=== PATIENT | female | born 1995 | race Caucasian/White ===

== ENCOUNTER 2019-04-26 18:50 | Inpatient (IN) | payer MEDICAID ==
[~2019-04-26] VITALS: Ht 160 cm; Wt 68.2 kg
[~2019-04-26 18:50] MED LIST: LORA10TA61 PO
[2019-04-26 19:23] LABS: BASOPHILS # (AUTO) 0.2 X10'3 (0-0.2); BASOPHILS % (AUTO) 0.7 % (0-1); EOSINOPHILS % (AUTO) 0 % (0-6); HEMATOCRIT 41.9 % (35.0-45.0); LYMPHOCYTES # (AUTO) 0.5 X10'3 (1.1-4.8); LYMPHOCYTES % (AUTO) 2.5 % (21-51); MEAN CORPUSCULAR HEMOGLOBIN 29.3 PG (27.0-31.0); MEAN CORPUSCULAR HGB CONC 33.5 g/dL (33.0-36.5); MEAN CORPUSCULAR VOLUME 87.6 FL (78-98); MEAN PLATELET VOLUME 7.6 FL (7.4-10.4); MONOCYTES # (AUTO) 0.9 X10'3 (0-0.9); MONOCYTES % (AUTO) 4.1 % (2-12); NEUTROPHILS # (AUTO) 19.8 X10'3 (1.8-7.7); NEUTROPHILS % (AUTO) 92.7 % (42-75); PLATELET COUNT 330 X10'3 (140-440); RED BLOOD COUNT 4.78 X10'6 (4.20-5.60); RED CELL DISTRIBUTION WIDTH 12.3 % (11.5-14.5); WHITE BLOOD COUNT 21.4 X10'3 (4.5-11.0)
[2019-04-26 19:25] LABS: URINE HCG NEGATIVE (NEG)
[2019-04-26 19:29] LABS: CLARITY,URINE CLOUDY (Clear); COLOR,URINE YELLOW (Yellow); GLUCOSE, URINE NEGATIVE (Neg); KETONES,URINE >=80 mg/dl (Neg); LEUKOCYTE ESTERASE ,URINE NEGATIVE (Neg); NITRITES, URINE NEGATIVE (Neg); OCCULT BLOOD,URINE NEGATIVE (Neg); PH,URINE 7.5 (4.8-8.0); PROTEIN,URINE 30 mg/dl (Neg)
[2019-04-26 19:40] LABS: ALANINE AMINOTRANSFERASE 19 U/L (12-78); ALBUMIN 4.7 G/DL (3.4-5.0); ALBUMIN/GLOBULIN RATIO 1.3 (1.1-1.5); ALKALINE PHOSPHATASE 127 IU/L (46-116); ANION GAP 12 (8-16); ASPARTATE AMINO TRANSFERASE 17 U/L (10-37); BILIRUBIN,TOTAL 0.6 MG/DL (0.1-1.0); BLOOD UREA NITROGEN 7 MG/DL (7-18); BUN/CREATININE RATIO 10.1 (6.6-38.0); CALCIUM 9.4 MG/DL (8.5-10.1); CHLORIDE 103 MMOL/L (99-107); CREATININE 0.69 MG/DL (0.40-0.90); GLUCOSE 103 MG/DL (70-104); POTASSIUM 3.9 MMOL/L (3.5-5.1); SODIUM 139 MMOL/L (135-145); TOTAL CARBON DIOXIDE 23.9 MMOL/L (24-32); TOTAL PROTEIN 8.3 G/DL (6.4-8.2); eGFR > 90 ML/MIN
[2019-04-26 19:53] LABS: UA COLLECTION TYPE CLN CATCH MIDSTREAM
[2019-04-26 20:05] LABS: WBC,URINE 0-4 /HPF (0-4)
[2019-04-26 20:06] LABS: AMORPHOUS PHOSPHATES 3+; BACTERIA,URINE FEW /HPF (Neg); MUCUS STRANDS MODERATE /LPF (Neg); RBC,URINE NONE SEEN /HPF (0-2); SQUAMOUS EPITHELIAL CELL,UR MODERATE /LPF (FEW)
[2019-04-26] MEDS ORDERED: ondansetron/PF 4mg/2ml inj IV ONE (20:50)
[2019-04-26] MEDS ORDERED: morphine 4 MG/ML inj SYRINge IV ONE (20:50)
[2019-04-26] MEDS ORDERED: normal saline 1000ML IV soln IVB ONE ×2 (20:50→21:50)
[2019-04-26] MEDS ORDERED: iohexol 300mg/ml 100ml inj. ONE (20:53)
[2019-04-26 21:22] LABS: LIPASE 63 U/L (73-393)
[2019-04-26 21:52] LABS: PARTIAL THROMBOPLASTIN TIME 30 SECONDS (22-32)
[2019-04-26] MEDS ORDERED: ertapenem sod inj 1 GM in normal saline 100ml IV soln 100 ML IV SCH (22:00)
[2019-04-26] MEDS ORDERED: ertapenem sod inj 1 GM in normal saline 100ml IV soln 100 ML IV ONE (22:01)
[2019-04-26] MEDS ORDERED: ringers solution, lacted 1,000 ML IV ONE (22:03)
[2019-04-26] MEDS ORDERED: NO HOME MEDS (22:09)
[2019-04-27] VITALS (15 sets, daily range): BP systolic 95–128; BP diastolic 57–79
[2019-04-27] MEDS ORDERED: HYDROmorphone 1 mg/ml syringe IV PRN (00:15)
[2019-04-27] MEDS ORDERED: HYDROmorphone inj. 0.5 MG/0.5 ML DISP.SYRIN IV PRN (00:15)
[2019-04-27] MEDS ORDERED: ondansetron/PF 4mg/2ml inj IV PRN ×2 (00:15→06:25)
[2019-04-27] MEDS: normal saline 1000ml 1,000 ML IV SCH ×2 (01:01→10:14)
--- NOTE | 2019-04-27 02:00 | NUR ---
Patient in room [facility]. I have received report from Tai ANTONIO in ER and had the opportunity to ask questions and assume patient care. Patient arrived in a wheelchair and she resting. Her heart rate is elevated at 113 with blood pressure at 128/79. She i getting prepared for surgery sometime in the morning.
[2019-04-27] MEDS ORDERED: famotidine/PF 10 mg/ml inj IV ONE (06:00)
--- NOTE | 2019-04-27 06:17 | NUR ---
Patient in room [facility]. I have received report from Marlin ANTONIO and had the opportunity to ask questions and assume patient care.
[2019-04-27] MEDS ORDERED: ringers solution, lacted 1,000 ML IV SCH (06:24)
[2019-04-27] MEDS ORDERED: hydrALAZINE 20mg/ml inj. IV PRN (06:25)
[2019-04-27] MEDS ORDERED: fentaNYL/PF 50MCG/1 ML 2ML syringe IV PRN ×2 (06:25)
[2019-04-27] MEDS ORDERED: labetalol 20mg/4ml (5mg/ml) syringe IV PRN (06:25)
[2019-04-27] MEDS ORDERED: morphine 4 MG/ML inj SYRINge IV PRN ×2 (06:25)
--- NOTE | 2019-04-27 06:37 | NUR ---
Problems reprioritized. Patient report given, questions answered & plan of care reviewed with Fide ANTONIO.
[2019-04-27] MEDS ORDERED: LIDOcaine 1% 30ml preserv. free vial ONE (07:03)
[2019-04-27] MEDS ORDERED: BUPIVAcaine/PF 2.5 mg/ml (0.25%) 30ml vial ONE (07:03)
--- NOTE | 2019-04-27 07:13 | NUR ---
Called report to recovery.
--- NOTE | 2019-04-27 07:14 | NUR ---
Patient off the unit to OR
[2019-04-27] MEDS ORDERED: fentaNYL/PF 50MCG/1 ML 2ML syringe ONE (07:18)
[2019-04-27] MEDS ORDERED: MIDAZolam 5mg/5ml vial ONE (07:19)
[2019-04-27] MEDS ORDERED: ceFOXitin 2 GM ADDVANTGE BAG 50 ML IV ONE (07:23)
[2019-04-27] MEDS ORDERED: ondansetron/PF 4mg/2ml inj ONE (07:27)
[2019-04-27] MEDS ORDERED: propofol inj 20 ML IV ONE (07:27)
[2019-04-27] MEDS ORDERED: rocuronium 10mg/ml inj IV ONE (07:27)
[2019-04-27] MEDS ORDERED: dexamethasone sod phosphate 4mg/ml inj. ONE (07:27)
[2019-04-27] MEDS ORDERED: LIDOcaine 1%/PF 5ML 10 MG/ML VIAL ONE (07:27)
[2019-04-27] MEDS ORDERED: neostigmine methylsulfate 1 MG/ML 10ml vial ONE (07:29)
[2019-04-27] MEDS ORDERED: glycopyrrolate 0.2mg/ml inj ONE (07:29)
[2019-04-27] MEDS ORDERED: metoprolol tartrate 1mg/ml inj IV ONE (07:40)
[2019-04-27] MEDS ORDERED: ketorolac trometh. 30mg/ml inj. ONE (07:59)
--- NOTE | 2019-04-27 08:12 | NUR ---
Received from OR via , accompanied by Anesthesiologist DR [email or web address] and report given by Anesthesiolgist. PT IS SLEEPING WITH SNORING RESP, NOT RESPONDIND TO VERBAL STIMULI, ABD HAS 3 BA'S CD, PIV RIGHT AC 20G, NO SCDS PT WILL BE DISCHARGED HOME POST RECOVERY.
[2019-04-27] MEDS ORDERED: HYDROcodone/acetaminophen 5mg/325mg tablet PO PRN (08:15)
[2019-04-27] MEDS ORDERED: HYDROcodone/acetaminophen 10/325mg tab PO PRN (08:15)
[2019-04-27] MEDS ORDERED: HYDR-4383 PO (08:18)
--- NOTE | 2019-04-27 08:25 | NUR ---
PT IS AWAKE, MOVING EXT X 4, NO C/O PAIN.
--- NOTE | 2019-04-27 08:38 | NUR ---
Report called to receiving nurse. Transferred via [facility] . Special Issues communicated to receiving nurse MARY CARMEN ANTONIO. PT IS WAKING TO VOICE AND RESPONDING TO VERBAL COMMANDS, SKIN WARM AND PINK, PIV PATENT, BA'S ON ABD CD, VSS, NO C/O PAIN, PEDRO FLUIDS. PT MEETS DISCHARGE CRITERIA.
--- NOTE | 2019-04-27 13:17 | NUR ---
Discharge paper work completed with patient and mother. Patient is still on Post-Op VS, one more hour needed.
--- NOTE | 2019-04-27 14:35 | NUR ---
Patient Post op VS completed. Patient WC by tech to lobby with mother. VS stable. A&O x4.
[2019-04-27] MEDS ORDERED: ertapenem sod inj 1 GM in normal saline 100ml IV soln 100 ML IV SCH (22:00)
== END 2019-04-27 14:34 | disposition home or self-care (01) | DRG 234 ==
LOC: ER 18:51 → SUR 3N 04-27 02:02
PROVIDERS: ADMIT Internal Medicine; ATTEND Surgery
PROC: BW211ZZ Computerized Tomography (CT Scan) of Abdomen and Pelvis using Low Osmolar Contrast (ICD-10-PCS; 2019-04-26)
PROC: 0DTJ4ZZ Resection of Appendix, Percutaneous Endoscopic Approach (ICD-10-PCS; principal; 2019-04-27 07:15)
DX: K35.891 Other acute appendicitis without perforation, with gangrene (principal); F17.200 Nicotine dependence, unspecified, uncomplicated
CPT/HCPCS: 36415; 71045; 74177; 80053; 81001; 81025; 82948; 83690; 85025; 85610; 85730; 87081; 93005; 96365; 96375; 96376; 99285; A4215; A4618; A7000; G0378; J0694; J1100; J1170; J1335; J1885; J2001; J2250; J2270; J2405; J2704; J2710; J3010; J3490; J7030; J7120; Q9967

== ENCOUNTER 2019-08-16 17:44 | Emergency (ER) | payer MEDICAID ==
[~2019-08-16] VITALS: Ht 160 cm; Wt 60.0 kg
[~2019-08-16 17:44] MED LIST changes: +HYDR-4383 PO; +LIDOcaine 1% W/epiNEPHrine 1:100,000 20ml vial ONE; -LORA10TA61 PO; +NO HOME MEDS
[2019-08-16] MEDS ORDERED: TETanus/Pertussis (Acell)/Diphther VAC/PF (Tdap-Adult) 0.5ml syringe IMVAC ONE (19:05)
[2019-08-16] MEDS ORDERED: CEPH250T PO (19:39)
[2019-08-16] MEDS ORDERED: IBUP-1984 PO (19:39)
== END 2019-08-16 19:52 | disposition home or self-care (01) ==
LOC: ER 17:45
DX: S01.81XA Laceration without foreign body of other part of head, initial encounter (principal); Z79.899 Other long term (current) drug therapy; W01.0XXA Fall on same level from slipping, tripping and stumbling without subsequent striking against object, initial encounter; Y93.89 Activity, other specified; Y92.89 Other specified places as the place of occurrence of the external cause; Y99.8 Other external cause status
CPT/HCPCS: 12011; 90471; 90715; 99284

== ENCOUNTER 2021-03-31 15:25 | Emergency (ER) | payer MEDICAID ==
[~2021-03-31] VITALS: Ht 160 cm; Wt 67.3 kg
[~2021-03-31 15:25] MED LIST changes: -LIDOcaine 1% W/epiNEPHrine 1:100,000 20ml vial ONE
[2021-03-31 15:48] VITALS: BP 143/95
== END 2021-03-31 20:13 | disposition left against medical advice (07) ==
LOC: ER 15:27
DX: O26.90 Pregnancy related conditions, unspecified, unspecified trimester (principal); Z53.21 Procedure and treatment not carried out due to patient leaving prior to being seen by health care provider; Z3A.00 Weeks of gestation of pregnancy not specified

== ENCOUNTER 2023-09-28 | Emergency (ER) | payer MEDICAID ==
[~2023-09-28] VITALS: Ht 157.5 cm; Wt 60.5 kg
[2023-09-28 00:16] VITALS: BP 142/90; PULSE 88; RESP 17; O2SAT 100
[2023-09-28] MEDS ORDERED: cephalexin 250mg capsule PO ONE (01:30)
[2023-09-28] MEDS ORDERED: bacitracin 15gm ointment TP ONE (01:30)
[2023-09-28] MEDS ORDERED: NEOM1OIN8 TOP ×2 (01:32→02:12)
[2023-09-28] MEDS ORDERED: CEPH-585 PO ×2 (01:32→02:12)
[2023-09-28 02:17] VITALS: TEMP 99.2
== END 2023-09-28 02:18 | disposition home or self-care (01) ==
LOC: ER 00:01
DX: L01.00 Impetigo, unspecified (principal); Z79.2 Long term (current) use of antibiotics; Z79.899 Other long term (current) drug therapy
CPT/HCPCS: 99283